=== PATIENT | female | born 1970 | race Caucasian/White ===

== ENCOUNTER → 2017-11-27 | Outpatient (CLI) | payer OTHER ==
[~2017-11-27] MED LIST: ACET-2031 PO; ATOR40TA24 PO; CA C1TAB11 PO; CYCL10TA29 PO; ESCI10TA8 PO; FLU45SYR17 IM; FOLI-50 PO; HYDR-317 PO; L-NO1TBD10 PO; L-NO1TBD18 PO; LORA-629 PO; LOTE5DRO3 OD; METF-410 PO; METF10002 PO; METF500T4 PO; METH5TAB PO; METH5TAB85 PO
== END ==
LOC: LAB 08:27
PROVIDERS: ATTEND Emergency Medicine
DX: E11.9 Type 2 diabetes mellitus without complications (principal)
CPT/HCPCS: 36415; 82465; 83718; 84478

== ENCOUNTER → 2018-05-01 | Outpatient (CLI) | payer OTHER ==
[~2018-05-01] MED LIST changes: -METF-410 PO; +METF-411 PO
== END ==
LOC: LAB 08:03
PROVIDERS: ATTEND Emergency Medicine
DX: E11.9 Type 2 diabetes mellitus without complications (principal)
CPT/HCPCS: 36415; 83036

== ENCOUNTER → 2018-07-03 | Outpatient (CLI) | payer OTHER ==
[~2018-07-03] MED LIST changes: +LOSA50TA72 PO
== END ==
LOC: LAB 07:41
PROVIDERS: ATTEND Emergency Medicine
DX: E11.9 Type 2 diabetes mellitus without complications (principal); I10 Essential (primary) hypertension
CPT/HCPCS: 36415; 82310; 82374; 82435; 82565; 82607; 82947; 84132; 84295; 84520

== ENCOUNTER → 2018-07-09 | Outpatient (CLI) | payer OTHER ==
[~2018-07-09] MED LIST changes: +LOSA25TA50 PO; +METH-318 PO
== END ==
LOC: LAB 09:01
PROVIDERS: ATTEND Emergency Medicine
DX: R53.83 Other fatigue (principal)
CPT/HCPCS: 36415; 84443

== ENCOUNTER → 2018-07-10 | Outpatient (CLI) | payer OTHER ==
--- NOTE | 2018-07-13 08:31 | RADIOLOGY IMAGING REPORT ---
FACILITY: [facility] - [place] PATIENT NAME: INNA STONE : [id number] MR: [id number] V: [id number] EXAM DATE: ORDERING PHYSICIAN: TAYLOR JONES TECHNOLOGIST: Sunitha Ball PROCEDURE:BILATERAL DIGITAL SCREENING MAMMOGRAM WITH CAD ASSISTED INTERPRETATION & 3D TOMOSYNTHESIS COMPARISON:12/19/16 with priors to 10/16/12 INDICATIONS:SCREENING FINDINGS: Breast parenchyma is predominantly fatty density. There are no mammographic findings concerning for malignancy. There is no significant interval change. DIAGNOSTIC CATEGORY 1--NEGATIVE. RECOMMENDATIONS: ROUTINE MAMMOGRAM AND CLINICAL EVALUATION. Follow up screening mammogram in 1 year. IMPRESSION: BIRADS 1: Negative. Dictated by: Otto Beckwith on 07/10/2018 at 12:15 Transcribed by: VIKA on 07/10/2018 at 13:02 Approved by: Jian Pena M.D. on 07/13/2018 at 8:30 [facility]
== END ==
LOC: MAMO 02:06
PROVIDERS: ATTEND Emergency Medicine
DX: Z12.31 Encounter for screening mammogram for malignant neoplasm of breast (principal); Z80.3 Family history of malignant neoplasm of breast
CPT/HCPCS: 77063; 77067

== ENCOUNTER → 2018-11-02 | Outpatient (CLI) | payer OTHER ==
[~2018-11-02] MED LIST changes: -LOSA25TA50 PO; +LOSA25TA57 PO; -LOSA50TA72 PO; +LOSA50TA80 PO; -METF-411 PO; +METF-450 PO
[2018-11-02 10:27] LABS: PLATELET COUNT, AUTOMATED 243 K/uL (150-450)
== END ==
LOC: LAB 07:37
PROVIDERS: ATTEND Emergency Medicine
DX: E11.9 Type 2 diabetes mellitus without complications (principal)
CPT/HCPCS: 36415; 83036; 85007; 85027

== ENCOUNTER → 2019-04-30 | Outpatient (CLI) | payer OTHER ==
[~2019-04-30] MED LIST changes: +CENTRUM CHEWAB1 EACH PO; +FLU60SYR36 IM; -FOLI-50 PO
== END ==
LOC: LAB 08:11
PROVIDERS: ATTEND Emergency Medicine
DX: E11.9 Type 2 diabetes mellitus without complications (principal)
CPT/HCPCS: 36415; 83036

== ENCOUNTER → 2019-06-11 | Outpatient (CLI) | payer OTHER | LOC: RESP 01:46 | PROVIDERS: ATTEND Emergency Medicine | DX: G47.33 Obstructive sleep apnea (adult) (pediatric) (principal) ==